=== PATIENT | female | born 2000 | race Caucasian/White ===

== ENCOUNTER 2024-03-12 10:47 | Emergency (ER) | payer OTHER ==
[~2024-03-12] VITALS: Ht 165.1 cm; Wt 55.8 kg
[2024-03-12 11:12] VITALS: BP 132/84; TEMP 98.5; O2SAT 97
[2024-03-12] MEDS ORDERED: IBUP-1490 PO (14:41)
[2024-03-12] MEDS ORDERED: ONDA4TAB11 PO (14:41)
[2024-03-12 15:39] LABS: PREGNANCY TEST URINE QUAL NEGATIVE (NEGATIVE)
== END 2024-03-12 16:12 | disposition home or self-care (01) ==
LOC: ER 10:47
DX: S00.83XA Contusion of other part of head, initial encounter (principal); R11.0 Nausea; Y04.2XXA Assault by strike against or bumped into by another person, initial encounter; Y93.89 Activity, other specified; Y92.89 Other specified places as the place of occurrence of the external cause; Y99.8 Other external cause status
CPT/HCPCS: 70450-TC; 84703-TC